=== PATIENT | female | born 2000 | race Caucasian/White ===

== ENCOUNTER 2021-07-03 19:33 | Emergency (ER) | payer BC ==
[2021-07-03] MEDS ORDERED: Acetaminophen 500 MG TAB ONE (21:09)
[2021-07-04 01:24] LABS: SARS-CoV-2 PCR by NAA Not Detected (NotDetected)
== END 2021-07-03 21:46 | disposition home or self-care (01) ==
LOC: ERS 19:33
DX: J11.1 Influenza due to unidentified influenza virus with other respiratory manifestations (principal); Z20.822 Contact with and (suspected) exposure to COVID-19
CPT/HCPCS: 87804; 99283; U0003; U0005